=== PATIENT | female | born 1955 | race African-American/Black ===

== ENCOUNTER 2022-09-11 10:39 | Inpatient (IN) | payer MEDICARE, MEDICAID ==
[~2022-09-11] VITALS: Ht 149.9 cm; Wt 104.8 kg
[~2022-09-11 10:39] MED LIST: ACET-3161 PO; ALBU2.5V13 NEB; ASPI-1497 PO; B50 PO; FLUT1DIS3 INH; VALS320T16 PO
[2022-09-11] MEDS ORDERED: ACETAMINOPHEN 325MG TABLET PO ONE (12:15)
[2022-09-11 14:49] LABS: BASOPHILS % 0.6 % (0.0-2.0); EOSINOPHILS % 2.7 % (0.0-5.0); HEMATOCRIT. 38.7 % (36.0-48.0); HEMOGLOBIN. 12.4 g/dL (12.0-16.0); LYMPHOCYTES % 16.7 % (20.0-50.0); MEAN CORPUSCULAR HEMOGLOBIN 26.1 pg (28.0-32.0); MEAN CORPUSCULAR VOLUME 81.3 fL (81.0-99.0); MEAN PLATELET VOLUME 8.6 fl (7.4-10.4); MONOCYTES % 8.8 % (2.0-8.0); NEUTROPHILS % 71.2 % (40.0-76.0); PLATELET 211 x1000/uL (130-400); RED BLOOD CELL COUNT 4.75 mill/uL (4.2-5.4); RED CELL DISTRIBUTION WIDTH 16.7 % (11.6-14.6)
[2022-09-11 14:51] LABS: CHLORIDE 105 mEq/L (98-107)
[2022-09-11 14:55] LABS: INR 1.1; PARTIAL THROMBOPLASTIN TIME 30.5 sec (23.4-31.0); PROTHROMBIN TIME 11.3 sec (9.6-11.0)
[2022-09-11 20:00] VITALS: BP 143/85
[2022-09-11 20:30] VITALS: BP 143/85
[2022-09-11] MEDS ORDERED: ALBUTEROL (0.083%) 2.5MG/3ML NEB HHN PRN (20:45)
[2022-09-11] MEDS ORDERED: IPRATROPIUM BROMIDE (0.02%) 0.5MG/2.5ML NEB HHN PRN (20:45)
[2022-09-11] MEDS ORDERED: ACETAMINOPHEN 325MG TABLET PO PRN (20:45)
[2022-09-11] MEDS ORDERED: NALOXONE HCL 0.4MG/ML VIAL IV PRN (20:45)
[2022-09-11] MEDS: LOSARTAN POTASSIUM 50 MG TABLET PO SCH (20:45)
[2022-09-11] MEDS ORDERED: HYDROCODONE/ACETAMINOPHEN 5/325MG TABLET PO PRN (20:45)
[2022-09-12] VITALS: BP 140/76
[2022-09-12] MEDS ORDERED: IPRATROPIUM/ALBUTEROL 0.5-3(2.5)MG/3ML NEB HHN SCH
[2022-09-12 04:00] VITALS: BP 145/87
[2022-09-12] MEDS ORDERED: PANTOPRAZOLE 40MG DR TABLET PO SCH (06:30)
[2022-09-12 08:00] VITALS: BP 110/60
[2022-09-12] MEDS: LOSARTAN POTASSIUM 50 MG TABLET PO SCH (09:02)
[2022-09-12] MEDS: ALBUTEROL (0.083%) 2.5MG/3ML NEB HHN SCH ×2 (09:38→12:00)
[2022-09-12] MEDS: IPRATROPIUM BROMIDE (0.02%) 0.5MG/2.5ML NEB HHN SCH ×2 (09:38→12:00)
[2022-09-12 09:53] VITALS: BP 110/60
[2022-09-12 12:00] VITALS: BP 122/78
[2022-09-12 13:05] VITALS: BP 122/66
== END 2022-09-12 14:40 | disposition home or self-care (01) | DRG 351 ==
LOC: ER 10:39 → EDBEDREQSVC 13:45 → EDBEDREQ 13:45 → 4WST 14:56 → EDBEDREQ 15:05 → EDBEDREQTM 15:05
PROVIDERS: ADMIT Internal Medicine; ATTEND Internal Medicine
DX: S69.92XA Unspecified injury of left wrist, hand and finger(s), initial encounter (principal); E66.9 Obesity, unspecified; I10 Essential (primary) hypertension; J45.909 Unspecified asthma, uncomplicated; Z96.659 Presence of unspecified artificial knee joint; Z90.710 Acquired absence of both cervix and uterus; Z88.0 Allergy status to penicillin; Z88.6 Allergy status to analgesic agent; Z82.49 Family history of ischemic heart disease and other diseases of the circulatory system; X58.XXXA Exposure to other specified factors, initial encounter; Y93.89 Activity, other specified; Y92.89 Other specified places as the place of occurrence of the external cause; Y99.8 Other external cause status
CPT/HCPCS: 36415; 73090; 73110; 73130; 80053; 84550; 85025; 93971; 94640; 99285

== ENCOUNTER 2023-08-24 10:33 | Inpatient (IN) | payer MEDICARE, MEDICAID ==
[~2023-08-24] VITALS: Ht 165.1 cm; Wt 169.2 kg
[2023-08-24] MEDS ORDERED: IBUPROFEN 600MG TABLET PO STA (10:39)
[2023-08-24 11:00] LABS: BASOPHILS % 0.4 % (0.0-2.0); EOSINOPHILS % 4.1 % (0.0-5.0); HEMATOCRIT. 37.7 % (36.0-48.0); HEMOGLOBIN. 11.9 g/dL (12.0-16.0); LYMPHOCYTES % 20.5 % (20.0-50.0); MEAN CORPUSCULAR HEMOGLOBIN 26.7 pg (28.0-32.0); MEAN CORPUSCULAR HGB CONC 31.7 g/dL (31.0-37.0); MEAN CORPUSCULAR VOLUME 84.3 fL (81.0-99.0); MEAN PLATELET VOLUME 8.4 fl (7.4-10.4); MONOCYTES % 6.4 % (2.0-8.0); NEUTROPHILS % 68.6 % (40.0-76.0); PLATELET 209 x1000/uL (130-400); RED BLOOD CELL COUNT 4.47 mill/uL (4.2-5.4); WHITE BLOOD COUNT 4.5 x1000/uL (4.5-11.0)
[2023-08-24 11:20] LABS: ALANINE AMINOTRANSFERASE < 7 IU/L (10-49); ASPARTATE AMINOTRANSFERASE 11 IU/L (<34); BILIRUBIN TOTAL 0.7 mg/dL (0.1-1.0); CALCIUM 8.3 mg/dL (8.7-10.4); CARBON DIOXIDE 28 mEq/L (21-32); CHLORIDE 104 mEq/L (98-107); CREATININE 0.6 mg/dL (0.6-1.0); GLUCOSE 132 mg/dL (70-105); POTASSIUM 3.9 mEq/L (3.5-5.1); PROTEIN TOTAL 6.7 g/dL (6.0-8.3); SODIUM 139 mEq/L (136-145); UREA NITROGEN BLOOD 17 mg/dL (9-23)
[2023-08-24] MEDS ORDERED: SODIUM CHLORIDE 0.9% 1,000 ML IV ONE (12:00)
[2023-08-24 16:00] VITALS: BP 128/70; PULSE 72; RESP 18; TEMP 97.6
[2023-08-24] MEDS ORDERED: DOCUSATE SODIUM 100MG CAPSULE PO PRN (16:15)
[2023-08-24] MEDS ORDERED: CLONIDINE 0.1MG TABLET PO PRN (16:15)
[2023-08-24] MEDS: AMLODIPINE 10MG TABLET PO SCH (16:15)
[2023-08-24] MEDS ORDERED: GUAIFENESIN 200MG/10ML SUGAR FREE UDC PO PRN (16:15)
[2023-08-24] MEDS ORDERED: ONDANSETRON HCL 4MG/2ML INJ IV PRN (16:15)
[2023-08-24] MEDS ORDERED: TRAMADOL 50MG TABLET PO PRN (16:15)
[2023-08-24 16:42] VITALS: BP 128/70; PULSE 72; RESP 18; TEMP 97.6
[2023-08-24] MEDS: HYDROCODONE/ACETAMINOPHEN 5/325MG TABLET PO PRN (18:51)
[2023-08-24 20:00] VITALS: BP 114/47; PULSE 68; RESP 18; TEMP 96.4
[2023-08-24] MEDS: ENOXAPARIN 40MG/0.4ML SYR SUBCUT SCH (22:06)
[2023-08-25] VITALS: BP 118/52; PULSE 66; RESP 18; TEMP 97.6
[2023-08-25 04:00] VITALS: BP 115/61; PULSE 61; RESP 18; TEMP 97.9
[2023-08-25] MEDS: HYDROCODONE/ACETAMINOPHEN 5/325MG TABLET PO PRN ×2 (05:57→22:10)
[2023-08-25 07:52] LABS: BASOPHILS % 0.3 % (0.0-2.0); EOSINOPHILS % 2.5 % (0.0-5.0); HEMATOCRIT. 37.3 % (36.0-48.0); HEMOGLOBIN. 11.9 g/dL (12.0-16.0); LYMPHOCYTES % 25.4 % (20.0-50.0); MEAN CORPUSCULAR HEMOGLOBIN 26.9 pg (28.0-32.0); MEAN CORPUSCULAR HGB CONC 31.9 g/dL (31.0-37.0); MEAN CORPUSCULAR VOLUME 84.4 fL (81.0-99.0); MEAN PLATELET VOLUME 8.6 fl (7.4-10.4); MONOCYTES % 4.8 % (2.0-8.0); PLATELET 214 x1000/uL (130-400); RED BLOOD CELL COUNT 4.42 mill/uL (4.2-5.4); RED CELL DISTRIBUTION WIDTH 15.9 % (11.6-14.6); WHITE BLOOD COUNT 4.7 x1000/uL (4.5-11.0)
[2023-08-25 08:00] VITALS: BP 95/55; PULSE 74; RESP 19; TEMP 98.9
[2023-08-25 08:16] LABS: ALANINE AMINOTRANSFERASE < 7 IU/L (10-49); ALBUMIN 2.7 g/dL (3.2-4.8); ASPARTATE AMINOTRANSFERASE 10 IU/L (<34); BILIRUBIN TOTAL 0.5 mg/dL (0.1-1.0); CALCIUM 7.9 mg/dL (8.7-10.4); CARBON DIOXIDE 26 mEq/L (21-32); CHLORIDE 108 mEq/L (98-107); CHOLESTEROL 127 mg/dL (<200); CREATININE 0.6 mg/dL (0.6-1.0); GLUCOSE 93 mg/dL (70-105); HDL CHOLESTEROL 25 mg/dL (>65); LDL CHOLESTEROL 77 mg/dL (5-100); POTASSIUM 4.1 mEq/L (3.5-5.1); PROTEIN TOTAL 6.2 g/dL (6.0-8.3); SODIUM 141 mEq/L (136-145); TRIGLYCERIDE 54 mg/dL (0-150); UREA NITROGEN BLOOD 18 mg/dL (9-23)
[2023-08-25] MEDS: AMLODIPINE 10MG TABLET PO SCH (09:00)
[2023-08-25] MEDS: ENOXAPARIN 40MG/0.4ML SYR SUBCUT SCH ×2 (10:02→21:16)
[2023-08-25 12:00] VITALS: BP 92/50; PULSE 60; RESP 19; TEMP 98.1
[2023-08-25 16:00] VITALS: BP 106/61; PULSE 68; RESP 19; TEMP 98.2
[2023-08-25 20:00] VITALS: BP 120/63; PULSE 67; RESP 20; TEMP 97.9
[2023-08-26] VITALS: BP 130/66; PULSE 68; RESP 20; TEMP 97.9
[2023-08-26 04:00] VITALS: BP 136/64; PULSE 66; RESP 20; TEMP 97.7
[2023-08-26 08:00] VITALS: BP 138/79; PULSE 66; RESP 19; TEMP 98.1
[2023-08-26] MEDS: ENOXAPARIN 40MG/0.4ML SYR SUBCUT SCH ×2 (10:30→20:02)
[2023-08-26] MEDS: AMLODIPINE 10MG TABLET PO SCH (10:30)
[2023-08-26 12:00] VITALS: BP 126/71; PULSE 75; RESP 19; TEMP 98
[2023-08-26 16:00] VITALS: BP 126/71; PULSE 79; RESP 19; TEMP 97.5
[2023-08-26 20:00] VITALS: BP 120/70; PULSE 69; RESP 20; TEMP 98.4
[2023-08-26] MEDS: HYDROCODONE/ACETAMINOPHEN 5/325MG TABLET PO PRN (20:02)
[2023-08-27] VITALS: BP 132/75; PULSE 67; RESP 20; TEMP 97.5
[2023-08-27 04:00] VITALS: BP 132/73; PULSE 65; RESP 20; TEMP 97.2
[2023-08-27] MEDS: HYDROCODONE/ACETAMINOPHEN 5/325MG TABLET PO PRN ×2 (04:42→21:33)
[2023-08-27 08:00] VITALS: BP 122/70; PULSE 61; RESP 20; TEMP 97.4
[2023-08-27] MEDS: AMLODIPINE 10MG TABLET PO SCH (09:46)
[2023-08-27] MEDS: ENOXAPARIN 40MG/0.4ML SYR SUBCUT SCH ×2 (09:46→21:33)
[2023-08-27 12:00] VITALS: BP 118/76; PULSE 67; RESP 21; TEMP 97.4
[2023-08-27 16:00] VITALS: BP 120/82; PULSE 62; RESP 20; TEMP 97.4
[2023-08-27] MEDS ORDERED: NALOXONE HCL 0.4MG/ML VIAL IV PRN (19:45)
[2023-08-27 20:00] VITALS: BP 156/86; PULSE 81; RESP 20; TEMP 97.9
[2023-08-28] VITALS: BP 133/76; PULSE 71; RESP 20; TEMP 97.9
[2023-08-28 04:00] VITALS: BP 145/77; PULSE 74; RESP 20; TEMP 97.2
[2023-08-28 08:00] VITALS: BP 149/79; PULSE 78; RESP 19; TEMP 98.2
[2023-08-28] MEDS: HYDROCODONE/ACETAMINOPHEN 5/325MG TABLET PO PRN (08:26)
[2023-08-28] MEDS: AMLODIPINE 10MG TABLET PO SCH (08:26)
[2023-08-28] MEDS: ENOXAPARIN 40MG/0.4ML SYR SUBCUT SCH ×2 (08:27→21:21)
[2023-08-28 12:00] VITALS: BP 125/73; PULSE 73; RESP 19; TEMP 98.2
[2023-08-28 16:00] VITALS: BP 128/67; PULSE 69; RESP 19; TEMP 98.2
[2023-08-28 20:00] VITALS: BP 122/80; PULSE 74; RESP 20; TEMP 99.5
[2023-08-29] VITALS: BP 126/75; PULSE 74; RESP 20; TEMP 98.6
[2023-08-29 04:00] VITALS: BP 129/72; PULSE 78; RESP 20; TEMP 96.6
[2023-08-29 08:00] VITALS: BP 144/82; PULSE 81; RESP 19; TEMP 97.7
[2023-08-29] MEDS: ENOXAPARIN 40MG/0.4ML SYR SUBCUT SCH ×2 (08:34→22:07)
[2023-08-29] MEDS: AMLODIPINE 10MG TABLET PO SCH (08:34)
[2023-08-29] MEDS: HYDROCODONE/ACETAMINOPHEN 5/325MG TABLET PO PRN (08:49)
[2023-08-29 12:00] VITALS: BP 113/66; PULSE 77; RESP 19; TEMP 97.5
[2023-08-29] MEDS: ACETAMINOPHEN 325MG TABLET PO PRN ×2 (14:21→22:18)
[2023-08-29 16:00] VITALS: BP 135/81; PULSE 75; RESP 19; TEMP 98.2
[2023-08-29 20:00] VITALS: BP 140/79; PULSE 76; RESP 18; TEMP 100.9
[2023-08-30] VITALS: BP 144/82; PULSE 82; RESP 18; TEMP 101.1
[2023-08-30 04:00] VITALS: BP 149/83; PULSE 84; RESP 18; TEMP 100.8
[2023-08-30 07:42] LABS: HEMATOCRIT. 39.7 % (36.0-48.0); MEAN CORPUSCULAR HEMOGLOBIN 26.9 pg (28.0-32.0); MEAN CORPUSCULAR HGB CONC 32.8 g/dL (31.0-37.0); MEAN PLATELET VOLUME 8.7 fl (7.4-10.4); PLATELET 190 x1000/uL (130-400); RED BLOOD CELL COUNT 4.84 mill/uL (4.2-5.4); RED CELL DISTRIBUTION WIDTH 15.8 % (11.6-14.6); WHITE BLOOD COUNT 3.1 x1000/uL (4.5-11.0)
[2023-08-30 08:00] VITALS: BP 130/84; PULSE 99; RESP 20; TEMP 98.9
[2023-08-30 08:05] LABS: DIFFERENTIAL COMMENT 1
[2023-08-30] MEDS: ENOXAPARIN 40MG/0.4ML SYR SUBCUT SCH ×2 (08:11→21:40)
[2023-08-30] MEDS: AMLODIPINE 10MG TABLET PO SCH (08:11)
[2023-08-30 09:17] LABS: ALANINE AMINOTRANSFERASE 73 IU/L (10-49); ALBUMIN 2.9 g/dL (3.2-4.8); ASPARTATE AMINOTRANSFERASE 107 IU/L (<34); BILIRUBIN TOTAL 0.3 mg/dL (0.1-1.0); CALCIUM 8.4 mg/dL (8.7-10.4); CARBON DIOXIDE 25 mEq/L (21-32); CHLORIDE 103 mEq/L (98-107); CREATININE 0.6 mg/dL (0.6-1.0); GLUCOSE 88 mg/dL (70-105); POTASSIUM 4.1 mEq/L (3.5-5.1); SODIUM 138 mEq/L (136-145); UREA NITROGEN BLOOD 13 mg/dL (9-23)
[2023-08-30 12:00] VITALS: BP 106/73; PULSE 75; RESP 18; TEMP 98.6
[2023-08-30] MEDS: ACETAMINOPHEN 325MG TABLET PO PRN ×2 (15:36→22:15)
[2023-08-30 16:00] VITALS: BP 114/69; PULSE 97; RESP 18; TEMP 99
[2023-08-30 16:13] LABS: PLATELET ESTIMATE NORMAL
[2023-08-30 20:00] VITALS: BP 108/79; PULSE 81; RESP 20; TEMP 98.2
[2023-08-31] VITALS: BP 128/79; PULSE 95; RESP 20; TEMP 98.8
[2023-08-31 04:00] VITALS: BP 133/78; PULSE 74; RESP 20; TEMP 98.4
[2023-08-31 08:00] VITALS: BP 147/94; PULSE 90; RESP 19; TEMP 100.8
[2023-08-31] MEDS: ENOXAPARIN 40MG/0.4ML SYR SUBCUT SCH ×2 (08:11→21:29)
[2023-08-31] MEDS: AMLODIPINE 10MG TABLET PO SCH (08:11)
[2023-08-31 12:00] VITALS: BP 138/88; PULSE 85; RESP 20; TEMP 98.6
[2023-08-31 16:00] VITALS: BP 138/77; PULSE 81; RESP 20; TEMP 100
[2023-08-31 20:00] VITALS: BP 155/88; PULSE 86; RESP 16; TEMP 99.9
[2023-09-01 00:31] VITALS: BP 130/85; PULSE 113; RESP 16; TEMP 98.1
[2023-09-01 04:00] VITALS: BP 126/91; PULSE 104; RESP 16; TEMP 97.9
[2023-09-01 08:00] VITALS: BP 122/78; PULSE 81; RESP 20; TEMP 99
[2023-09-01] MEDS: AMLODIPINE 10MG TABLET PO SCH (08:49)
[2023-09-01] MEDS: ENOXAPARIN 40MG/0.4ML SYR SUBCUT SCH ×2 (08:49→21:49)
[2023-09-01 12:00] VITALS: BP 120/74; PULSE 72; RESP 16; TEMP 97.9
[2023-09-01 16:00] VITALS: BP 113/71; PULSE 100; RESP 21; TEMP 98.1
[2023-09-01 20:00] VITALS: BP 105/73; PULSE 101; RESP 20; TEMP 97.7
[2023-09-01] MEDS: ACETAMINOPHEN 325MG TABLET PO PRN (21:49)
[2023-09-02] VITALS: BP 109/74; PULSE 72; RESP 20; TEMP 97.5
[2023-09-02 04:00] VITALS: BP 112/78; PULSE 81; RESP 20; TEMP 97.2
[2023-09-02] MEDS ORDERED: GUAIFENESIN-DM 200MG-20MG/10ML UDC PO PRN (07:00)
[2023-09-02] MEDS: ACETAMINOPHEN 325MG TABLET PO PRN ×2 (07:05→18:45)
[2023-09-02 08:00] VITALS: BP 107/67; PULSE 75; RESP 21; TEMP 97.5
[2023-09-02] MEDS: AMLODIPINE 10MG TABLET PO SCH (08:30)
[2023-09-02] MEDS: ENOXAPARIN 40MG/0.4ML SYR SUBCUT SCH ×2 (08:43→21:35)
[2023-09-02 12:00] VITALS: BP 131/70; PULSE 84; RESP 21; TEMP 98.2
[2023-09-02 20:00] VITALS: BP 112/73; PULSE 78; RESP 20; TEMP 96.1
[2023-09-02] MEDS ORDERED: LIDOCAINE 5% PATCH TOP NR (23:30)
[2023-09-02] MEDS ORDERED: IBUPROFEN 600MG TABLET PO NR (23:30)
[2023-09-03] VITALS: BP 130/72; PULSE 76; RESP 20; TEMP 97.9
[2023-09-03 04:00] VITALS: BP 101/59; PULSE 81; RESP 20; TEMP 96.9
[2023-09-03 08:00] VITALS: BP 106/78; PULSE 99; RESP 19; TEMP 98.1
[2023-09-03] MEDS: AMLODIPINE 10MG TABLET PO SCH (09:00)
[2023-09-03] MEDS: ENOXAPARIN 40MG/0.4ML SYR SUBCUT SCH ×2 (09:45→22:09)
[2023-09-03] MEDS: ACETAMINOPHEN 325MG TABLET PO PRN ×2 (09:47→22:08)
[2023-09-03 12:00] VITALS: BP 104/75; PULSE 94; RESP 19; TEMP 97.7
[2023-09-03] MEDS ORDERED: LIDOCAINE 5% PATCH TOP SCH (12:00)
[2023-09-03 16:00] VITALS: BP 104/75; PULSE 94; RESP 19; TEMP 97.7
[2023-09-03 20:00] VITALS: BP 108/61; PULSE 95; RESP 19; TEMP 100.6
[2023-09-04] VITALS: BP 101/68; PULSE 106; RESP 19; TEMP 99.1
[2023-09-04 04:00] VITALS: BP 100/61; PULSE 79; RESP 19; TEMP 96.4
[2023-09-04 08:00] VITALS: BP 106/42; PULSE 93; RESP 18; TEMP 98
[2023-09-04] MEDS: AMLODIPINE 10MG TABLET PO SCH (09:16)
[2023-09-04] MEDS: ACETAMINOPHEN 325MG TABLET PO PRN (09:27)
[2023-09-04 12:00] VITALS: BP 98/65; PULSE 97; RESP 18; TEMP 98.4
[2023-09-04 16:00] VITALS: BP 102/67; PULSE 96; RESP 18; TEMP 97.7
[2023-09-04 18:03] VITALS: BP 102/67; PULSE 96; TEMP 97.7; O2SAT 99
[2023-09-04] MEDS ORDERED: LIDOCAINE 5% PATCH TOP SCH (21:00)
== END 2023-09-04 20:08 | DRG 351 ==
LOC: ER 10:52 → EDBEDREQ 12:03 → 6EST 13:00 → EDBEDREQ 13:02
PROVIDERS: ADMIT Hospitalist; ATTEND Hospitalist
DX: M17.11 Unilateral primary osteoarthritis, right knee (principal); E44.1 Mild protein-calorie malnutrition; R62.7 Adult failure to thrive; Z68.44 Body mass index [BMI] 60.0-69.9, adult; E66.01 Morbid (severe) obesity due to excess calories; Z20.822 Contact with and (suspected) exposure to COVID-19; I10 Essential (primary) hypertension; J45.909 Unspecified asthma, uncomplicated; Z96.659 Presence of unspecified artificial knee joint; Z88.0 Allergy status to penicillin; Z90.710 Acquired absence of both cervix and uterus; Z79.899 Other long term (current) drug therapy
CPT/HCPCS: 36415; 73560; 80053; 80061; 83735; 85025; 93970; 97110; 97162; 97166; 97530; 97535; 99285; A6261; J1650; J7030